=== PATIENT | female | born 1995 | race Caucasian/White ===

== ENCOUNTER 2024-03-22 08:57 | Outpatient (AMB) | payer BC, SELFPAY ==
--- NOTE | 2024-03-22 09:14 | A.OFFPC_ITS ---
Vital Signs 03/22/24 09:22 Height 5 ft 2.48 in Weight 148 lb BMI 26.7 BP 110/58 L Blood Pressure Location Lt brachial Position Sitting Respiration 12 Pulse 91 Pulse Source Pulse Oximeter Temp 98.2 F Temp Source Oral Pulse Oximetry (%) 99 Oxygen Delivery Method Room Air Intake Visit Reasons: RECEIVING LEAD-stomach issues Intake Note: New patient visit Allergies No Known Allergies Allergy (Verified 03/22/24 09:15) Tobacco use date assessed: 03/22/24 Dental Screening Dental Screen Date: 03/22/24 Did you have a dental visit in the last 12 months?: Yes Did you have a dental problem in the last 6 months where you did not have access to dental care?: No Was dental information given to patient?: Patient declined (Patient got her own insurance and will look for one) HPI HPI Comments History of Present Illness Details This is a 28 year old female with a pmhx of bipolar disorder presenting [facility]. She [place] [facility] [place]ipolar disorder-She had been working on mental health for the past two years, and she was diagnosed with this February 2024. She has a therapist she sees weekly. Her psychiatrist is Tiffany Estrada (telehealth @ [facility]). Patient is on [employer]. She is recently engaged, planning longer engagement. 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 Patient and I reviewed family history. MGM and MGGM of postmenopausal breast cancer. Patient denies breast pain or lumps. Father had melanoma and paternal uncle of prostate cancer. Patient wonders if she should see a GI doctor. During the past 2 years she has more frequent BMs, 4-5 per day. She says they are well formed. She is somewhat bothered by fecal urgency after eating, but this is not a consistent symptom. Happens more in the morning and if she eats dinner out somewhere or has fried foods. Patient denies blood in stools. Just feels like food goes through her quickly. Reports having labs done at [facility] in [place] for her psychiatrist a couple weeks ago. She noticed a spot near her hairline 3-4 months ago. It looks irregular. Her father had melanoma. She does not have a bread distributor. ROS: Constitutional: No unexplained weight loss, fever, chills or night sweats. Gastrointestinal: No anorexia, nausea, vomiting or diarrhea. No abdominal pain or blood in stool. Psychiatric: No SI/HI. Physical exam: Constitutional: Alert, in no distress. Neck: Supple, Full range of motion. No lymphadenopathy. No palpable thyroid masses. Respiratory: Clear to auscultation. Cardiovascular: S1 S2 regular. No murmurs. Gastrointestinal: Abdomen soft, non-tender, non-distended. Normal bowel sounds. No palpable masses. Skin: Fair, heavily freckled skin. 8mm lesion on right forehead by the hairline, asymmetric, ruff around edges and light color in center with pearly slight raised center Extremities: Warm and well perfused. No clubbing, cyanosis or edema. Psychiatric: Normal mood and affect [facility] Medical History (Updated 03/22/24 @ 10:25 by JOSE Randall) Family history of cancer Neoplasm of skin Sinus infection Fecal urgency Frequent bowel movements Bipolar disorder Family History (Updated 03/22/24 @ 10:19 by JOSE Randall) Father Alcoholism Melanoma Maternal Grandmother Breast cancer Family/Other Breast cancer Paternal Uncle Prostate cancer Brother Anxiety and depression Sister Anxiety and depression Mother Hypothyroid Other Substance use Social History (Updated 03/22/24 @ 09:20 by Florence Ling CMA) Housing: House Patient Tobacco Use Status: Never used Tobacco e-Cigarette/Vaping Use: Never Used Second Hand Smoke Exposure: No Substance Use Type: Marijuana service: No Current occupational status: employed 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 1. Little interest or pleasure in doing things: not at all 2. Feeling down, depressed, or hopeless: not at all 3. Trouble falling or staying asleep, or sleeping too much: several days 4. Feeling tired or having little energy: several days 5. Poor appetite or overeating: several days 6. Feeling bad about yourself - or that you are a failure or have let yourself or your family down: not at all 7. Trouble concentrating on things, such as reading the newspaper or watching television: several days 8. Moving or speaking so slowly that other people could have noticed. Or the opposite - being so fidgety or restless that you have been moving around a lot more than usual: not at all 9. Thoughts that you would be better off or of hurting yourself in some way: not at all Total score: 4 Depression Screening Interpretation: Positive Depression Screening Follow-up: Existing condition and In treatment Depression Screening Done: Yes 69092 - PHQ-9 Billing: Yes Source: Developed by Drs. Naif Islas, Yanira Patrick, Maxwell Bhandari and colleagues, with an educational maranda from [employer]. Thrive Questionnaire Date Thrive assessed: 03/22/24 I am a: Patient What is your living situation today?: I have a steady place to live Within the past 12 months, did the food you bought not last and you didn't have the money to get more?: Never true Within the past 12 months, did you worry whether your food would run out before you got money to buy more?: Never true Do you have trouble paying for medicines?: No Do you have trouble getting transportation to medical appointments?: No Do you have trouble paying your heating and electricity bill?: No Do you have trouble taking care of your child, family member or friend?: No Do you have trouble with day-to-day activities such as bathing, preparing meals, shopping, managing finances, etc.?: No Are you currently unemployed and looking for a job?: No Are you interested in more education?: No Please select the resources that you would like help with: None Currently or been in a relationship where the following occur: No concerns reported THRIVE Score: 0 AUDIT C Alcohol Use Questionnaire (AUDIT-C) 1. How often do you have a drink containing alcohol?: 2-4 times a month 2. How many drinks containing alcohol do you have on a typical day when you are drinking?: 1 or 2 3. How often do you have six or more drinks on one occasion?: Never Total Score: 2 JARRET-7 AMB Questionnaire JARRET-7 Date JARRET - 7 assessed: 03/22/24 Feeling nervous, anxious, or on edge: 0 = Not at all Not being able to stop or control worryin = Several days Worrying too much about different things: 1 = Several days Trouble relaxin = Several days Being so restless that it is hard to sit still: 1 = Several days Becoming easily annoyed or irritable: 1 = Several days Feeling afraid as if something awful might happen: 1 = Several days Total JARRET-7 score (0-4 normal; 5-9 mild; 10-14 moderate; 15-21 severe): 6 Source: Developed by Drs. Naif Islas, Yanira Patrick, Maxwell Bhandari and colleagues, with an educational maranda from [employer]. JARRET-7 Assessment Billing JARRET-7 Assessment Tool: JARRET-7 Assessment 33628 Physical exam (Primary Care) Vital Signs: Last Vital Signs Temp 98.2 F 03/22/24 09:22 Pulse 91 03/22/24 09:22 Resp 12 03/22/24 09:22 BP 110/58 L 03/22/24 09:22 Pulse Ox 99 03/22/24 09:22 Oxygen Delivery Method Room Air 03/22/24 09:22 BMI result Body Mass Index 26.7 Tobacco/Smoking Status: Tobacco use Status Tobacco use date assessed 03/22/24 03/22/24 09:26 Patient Tobacco Use Status Never used Tobacco 03/22/24 09:26 e-Cigarette/Vaping Use Never Used 03/22/24 09:26 PHQ-9: PHQ-9 Score PHQ-9: Total score 4 03/22/24 10:07 Depression Screening Interpretation: Positive Depression Screening Follow-up: Existing condition and In treatment Thrive Assessment: Date of Thrive Assessment Date Thrive assessed 03/22/24 03/22/24 10:07 Currently or been in a relationship where the following occur: No concerns reported Assessment and Plan Assessment & Plan (1) Bipolar disorder: Code(s): F31.9 - Bipolar disorder, unspecified Qualifiers: Active/Remission status: currently active Current bipolar episode type: mixed Current episode severity: unspecified Qualified Code(s): F31.60 - Bipolar disorder, current episode mixed, unspecified Plan: Continue management plan per psychiatrist and therapist. (2) Frequent bowel movements: Code(s): R19.4 - Change in bowel habit Plan: +fecal urgency. No red flag symptoms otherwise. Possibly IBS, but she reports stools are formed. Will refer to GI for consideration of scope. Advised pt to keep food journal re:fecal urgency. Requests labs done at [facility]. (3) Fecal urgency: Code(s): R15.2 - Fecal urgency (4) Neoplasm of skin: Code(s): D49.2 - Neoplasm of unspecified behavior of bone, soft tissue, and skin Plan: Refer urgently to [facility]. Pt advised to contact this office if she does not hear about this in the next 2 weeks. (5) Family history of cancer: Code(s): Z80.9 - Family history of malignant neoplasm, unspecified Plan: Referred to genetic counselor because she is interested in testing for genetic mutations. Patient also advised to stay UTD on routine HM. 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: Referrals Dermatology Referral D49.2 - Neoplasm of unspecified behavior of bone, soft tissue, and skin, Z80.8 - Family history of malignant neoplasm of other organs or systems Gastroenterology Referral R15.2 - Fecal urgency, R19.4 - Change in bowel habit Genetics Referral Z80.9 - Family history of malignant neoplasm, unspecified Coding Level of Care Code New Pt Level 4 (93556) Complex EM visit Add On G2211 Diagnoses Bipolar affective disorder, current episode mixed, current episode severity unspecified F31.60 Active/Remission status: currently active Current bipolar episode type: mixed Current episode severity: unspecified Frequent bowel movements R19.4 Fecal urgency R15.2 Neoplasm of skin D49.2 Family history of cancer Z80.9 Additional Codes JARRET-7 Assessment Billing - JARRET-7 Assessment Tool: JARRET-7 Assessment 36897 ([id number])
[2024-03-22 09:22] VITALS: BP 110/58; PULSE 91; RESP 12; TEMP 36.8; O2SAT 99; BMI 26.7
== END 2024-03-22 10:05 | disposition home or self-care (01) ==
PROVIDERS: PCP Physician Assistant Medical; Visit Provider Physician Assistant Medical
DX: R19.4 Change in bowel habit (principal); F31.60 Bipolar disorder, current episode mixed, unspecified; R15.2 Fecal urgency; D49.2 Neoplasm of unspecified behavior of bone, soft tissue, and skin; Z80.9 Family history of malignant neoplasm, unspecified
CPT/HCPCS: 99204

== ENCOUNTER 2024-06-06 15:20 | Outpatient (AMB) | payer BC, SELFPAY ==
--- NOTE | 2024-06-06 14:43 | MHC.PC.OV ---
Intake Visit Reasons: sinus infection Intake Note: Congestion in face and nose, dry throat, coughing, fatigue. Allergies No Known Allergies Allergy (Verified 06/06/24 15:18) Tobacco use date assessed: 03/22/24 Dental Screening Dental Screen Date: 03/22/24 HPI HPI Comments History of Present Illness Details This is a 28 year old female presenting for a sick visit. She gets sinus infections once or twice per year. She developed symptoms a week ago. She has yellow nasal discharge, pain and pressure in her cheeks and around her eyes. It is tender if she presses on her cheeks. She had a low-grade fever on Monday. She missed work that day. She endorses postnasal drip triggering a scratchy throat and cough. DayQuil is not helping. ROS: Constitutional: No fevers since Monday, no chills Eyes: No vision changes, blurry vision, double vision, eye pain, eye redness, eye discharge. ENT: No hearing loss, ear pain, see HPI Neurologic: No dizziness PFSH Medical History (Updated 03/22/24 @ 10:25 by JOSE Randall) Family history of cancer Neoplasm of skin Sinus infection Fecal urgency Frequent bowel movements Bipolar disorder Family History (Updated 03/22/24 @ 10:19 by JOSE Randall) Father Alcoholism Melanoma Maternal Grandmother Breast cancer Family/Other Breast cancer Paternal Uncle Prostate cancer Brother Anxiety and depression Sister Anxiety and depression Mother Hypothyroid Other Substance use Social History (Updated 03/22/24 @ 09:20 by Florence Ling CMA) Housing: House Patient Tobacco Use Status: Never used Tobacco e-Cigarette/Vaping Use: Never Used Second Hand Smoke Exposure: No Substance Use Type: Marijuana service: No Current occupational status: employed 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 Naif Islas, Yanira Patrick, Maxwell Bhandari and colleagues, with an educational maranda from [employer]. Physical exam (Primary Care) Tobacco/Smoking Status: Tobacco use Status Tobacco use date assessed 03/22/24 06/06/24 14:44 Patient Tobacco Use Status Never used Tobacco 06/06/24 14:44 e-Cigarette/Vaping Use Never Used 06/06/24 14:44 Thrive Assessment: Date of Thrive Assessment Date Thrive assessed 03/22/24 06/06/24 14:44 Telehealth Telehealth Telehealth Platform: Telephone Location of provider rendering services: practice address Location of patient: address on file Patient Identification confirmed using: Name, : No Telehealth method: voice only Patient verbally consented to treatment: Yes Patient verbally consented to billing insurance company: Yes Patient informed of any privacy concerns related to visit: Yes Minutes spent on Phone/Video with Pt.: 5 Coding Level of Care Code Tele Est Pt Level 3 (37565) Diagnoses Acute non-recurrent sinusitis of other sinus J01.80 Sinusitis location: other Recurrence: non-recurrent Assessment & Plan Assessment & Plan (1) Acute sinus infection: Code(s): J01.90 - Acute sinusitis, unspecified Qualifiers: Sinusitis location: other Recurrence: non-recurrent Qualified Code(s): J01.80 - Other acute sinusitis Plan Patient will be treated with Augmentin 1 pill twice daily for 10 days. Complete entire course of antibiotics even if symptoms improve. Recommended saline nasal spray, cool mist humidifier, rest and fluids. She is prone to yeast infections so I sent an advanced prescription of Diflucan. She will call if symptoms do not resolve. Medications: New amoxicillin-pot clavulanate 875-125 mg 1 tab PO BID 10 days 20 tabs 0RF fluconazole may repeat second dose 72 hrs after first dose if symptoms persist 150 mg PO Q3D 2 tabs 0RF
== END 2024-06-06 16:19 | disposition home or self-care (01) ==
LOC: HO.HMCFM 15:20
PROVIDERS: PCP Family Medicine; Visit Provider Physician Assistant Medical
DX: J01.80 Other acute sinusitis (principal)

== ENCOUNTER → 2024-06-06 15:20 | Outpatient (BNVA) | payer BC, SELFPAY | PROVIDERS: PCP Family Medicine; Visit Provider Physician Assistant Medical ==

== ENCOUNTER 2024-10-24 08:33 | Outpatient (AMB) | payer BC, SELFPAY ==
--- NOTE | 2024-10-24 08:41 | A.OFFPC_ITS ---
Vital Signs 10/24/24 08:44 Height 5 ft 2.48 in Weight 179 lb 6 oz BMI 32.3 BP 118/58 L Blood Pressure Location Rt brachial Position Sitting Respiration 12 Pulse 98 Pulse Source Pulse Oximeter Pulse Oximetry (%) 99 Oxygen Delivery Method Room Air Intake Visit Reasons: annual physical exam Intake Note: Physical Allergies No Known Allergies Allergy (Verified 10/24/24 08:42) Tobacco use date assessed: 10/24/24 Dental Screening Dental Screen Date: 03/22/24 HPI HPI Comments History of Present Illness Details This is a 29 year old female with a pmhx of bipolar disorder presenting for a physical exam. Bipolar disorder-diagnosed with this February 2024. She has a therapist she sees weekly. Her psychiatrist is Tiffany Estrada (telehealth @ [facility]). Patient is on Abillify. She is recently engage. Her wedding is 06/13/2026. 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 Patient and I reviewed family history again. MGM and MGGM of postmenopausal breast cancer. Patient denies breast pain or lumps. Father had melanoma and paternal uncle of prostate cancer. She was referred to genetic counseling. She was contacted for the appointment, and she has the packet from [facility], but she is waiting to pursue that right now. She does still plan on following up with [facility] genetics. Patient I previously discussed frequent BMs that are in the morning. Patient says they are well formed. No bleeding or mucus in stools. She was referred to Gastroenterology, but she is going to reschedule the appointment. There has been no change in symptoms, but she does recognize a correlation between these events and binge eating. She has been speaking to her therapist about it, and she requests to see a dietitian. She is very active. She goes to the gym 5 days per week. Denies family history of colon cancer. Her father has had colon polyps since he started colonoscopy screenings in his 50s. She sees Gynecology annually. She is going to discuss testing for PCOS with them at her annual physical next week. She has an appointment with [facility] in December for a skin exam. She received the influenza vaccine this season. Her last Tdap on file is in 2008, but she thinks she may have had this done at [facility] in the last few years, and we did not receive those records. She will sign a release for her records and contact the office in a month to see if we have received them. I reviewed her normal lab results that are scanned into the chart from summer 2023. ROS: Constitutional: No unexplained weight loss, fever, chills, fatigue or night sweats. Eyes: No vision changes, blurry vision, double vision, eye pain, eye redness, eye discharge. ENT: No hearing loss, sneezing, congestion, runny nose or sore throat. Respiratory: No shortness of breath, cough or sputum production. Cardiovascular: No chest pain, chest pressure or chest discomfort. No palpitations or pedal edema. Gastrointestinal: No anorexia, nausea, vomiting or diarrhea. No abdominal pain or blood in stool. Genitourinary: No dysuria, hematuria, urinary frequency. Neurologic: No headache, dizziness, syncope, unilateral weakness, ataxia, numbness or tingling in the extremities. Musculoskeletal: No muscle pain, back pain, joint pain or swelling. Hematologic/Lymphatics: No bleeding or bruising. No painful lymph nodes. Skin: No rash Endocrine: No cold or heat intolerance. No polyuria or polydipsia. Psychiatric: No SI/HI. Physical exam: Constitutional: Alert, in no distress. Head: Normocephalic. Eyes: Pupils are equal, round and reactive to light. Extraocular muscles intact. Ear, Nose and Throat: Canals clear. TMs normal. Normal nasal mucosa. No nasal discharge. No oral lesions. Neck: Supple, Full range of motion. No lymphadenopathy. No palpable thyroid masses. Respiratory: Clear to auscultation. Cardiovascular: S1 S2 regular. No murmurs. Gastrointestinal: Abdomen soft, non-tender, non-distended. Normal bowel sounds. No palpable masses. Neurologic: No focal neurological deficits. Symmetric patellar reflexes. Moves all extremities spontaneously. Sensation intact bilaterally. Skin: Fair, heavily freckled skin Musculoskeletal: No gross deformities. Normal range of motion. Extremities: Warm and well perfused. No clubbing, cyanosis or edema. 3+ peripheral pulses bilaterally. Psychiatric: Normal mood and affect [facility] Medical History (Updated 10/24/24 @ 08:59 by JOSE Randall) Binge eating Family history of cancer Neoplasm of skin Sinus infection Fecal urgency Frequent bowel movements Bipolar disorder Family History Father Alcoholism Melanoma Maternal Grandmother Breast cancer Family/Other Breast cancer Paternal Uncle Prostate cancer Brother Anxiety and depression Sister Anxiety and depression Mother Hypothyroid Other Substance use Social History (Updated 10/24/24 @ 08:46 by Florence Ling CMA) Housing: House Alcohol intake: current Patient Tobacco Use Status: Never used Tobacco e-Cigarette/Vaping Use: Never Used Second Hand Smoke Exposure: No Substance Use Type: Marijuana service: No Current occupational status: employed 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 1. Little interest or pleasure in doing things: not at all 2. Feeling down, depressed, or hopeless: not at all 3. Trouble falling or staying asleep, or sleeping too much: not at all 4. Feeling tired or having little energy: not at all 5. Poor appetite or overeating: more than half the days 6. Feeling bad about yourself - or that you are a failure or have let yourself or your family down: not at all 7. Trouble concentrating on things, such as reading the newspaper or watching television: not at all 8. Moving or speaking so slowly that other people could have noticed. Or the opposite - being so fidgety or restless that you have been moving around a lot more than usual: not at all 9. Thoughts that you would be better off or of hurting yourself in some way: not at all Total score: 2 Depression Screening Interpretation: Negative Depression Screening Done: Yes 63482 - PHQ-9 Billing: Yes Source: Developed by Drs. Naif Islas, Yanira Patrick, Maxwell Bhandari and colleagues, with an educational maranda from [employer]. Thrive Questionnaire Date Thrive assessed: 10/24/24 I am a: Patient What is your living situation today?: I have a steady place to live Within the past 12 months, did the food you bought not last and you didn't have the money to get more?: Never true Within the past 12 months, did you worry whether your food would run out before you got money to buy more?: Never true Do you have trouble paying for medicines?: No Do you have trouble getting transportation to medical appointments?: No Do you have trouble paying your heating and electricity bill?: No Do you have trouble taking care of your child, family member or friend?: No Do you have trouble with day-to-day activities such as bathing, preparing meals, shopping, managing finances, etc.?: No Are you currently unemployed and looking for a job?: No Are you interested in more education?: Yes Please select the resources that you would like help with: None Currently or been in a relationship where the following occur: No concerns r eported THRIVE Score: 0 AUDIT C Alcohol Use Questionnaire (AUDIT-C) 1. How often do you have a drink containing alcohol?: Monthly or less 2. How many drinks containing alcohol do you have on a typical day when you are drinking?: 1 or 2 3. How often do you have six or more drinks on one occasion?: Never Total Score: 1 JARRET-7 AMB Questionnaire JARRET-7 Date JARRET - 7 assessed: 10/24/24 Feeling nervous, anxious, or on edge: 0 = Not at all Not being able to stop or control worryin = Not at all Worrying too much about different things: 0 = Not at all Trouble relaxin = Not at all Being so restless that it is hard to sit still: 0 = Not at all Becoming easily annoyed or irritable: 0 = Not at all Feeling afraid as if something awful might happen: 0 = Not at all Total JARRET-7 score (0-4 normal; 5-9 mild; 10-14 moderate; 15-21 severe): 0 Source: Developed by Drs. Naif Islas, Yanira Patrick, Maxwell Bhandari and colleagues, with an educational maranda from [employer]. JARRET-7 Assessment Billing JARRET-7 Assessment Tool: JARRET-7 Assessment 47886 Physical exam (Primary Care) Vital Signs: Last Vital Signs Pulse 98 10/24/24 08:44 Resp 12 10/24/24 08:44 BP 118/58 L 10/24/24 08:44 Pulse Ox 99 10/24/24 08:44 Oxygen Delivery Method Room Air 10/24/24 08:44 BMI result Body Mass Index 32.3 Tobacco/Smoking Status: Tobacco use Status Tobacco use date assessed 10/24/24 10/24/24 08:45 Patient Tobacco Use Status Never used Tobacco 10/24/24 08:46 e-Cigarette/Vaping Use Never Used 10/24/24 08:46 PHQ-9: PHQ-9 Score PHQ-9: Total score 2 10/24/24 08:47 Depression Screening Interpretation: Negative Thrive Assessment: Date of Thrive Assessment Date Thrive assessed 10/24/24 10/24/24 08:47 Currently or been in a relationship where the following occur: No concerns reported Coding Level of Care Code Est Pt Prev Care 18-39y(15278) Diagnoses Routine physical examination Z00.00 Binge eating R63.2 Additional Codes JARRET-7 Assessment Billing - JARRET-7 Assessment Tool: JARRET-7 Assessment 92814 ([id number]) PHQ-9 - 94035 - PHQ-9 Billing: Yes ([id number]) Assessment & Plan Assessment & Plan (1) Routine physical examination: Code(s): Z00.00 - Encounter for general adult medical examination without abnormal findings (2) Binge eating: Code(s): R63.2 - Polyphagia Category: Medical Plan Patient is seen today for a routine physical. As part of this visit we reviewed the following issues, which are considered and essential part of preventative health in this age group: - Breast Cancer screening - Annual Forms Examiner exam - Blood pressure screening - Cholesterol screening - normal cholesterol screening 02/2024 - Osteoporosis prevention including calcium/vitamin D intake, weight bearing exercise & smoking cessation - Nutritional and exercise counseling - Counseling of injury prevention including fire prevention, smoke alarms and seat belt usage - Prevention of and/or testing for infectious diseases-patient declined - Education about skin cancer - Recommendations about immunizations - see HPI regarding Tdap vaccination - Recommendation of an eye exam - Screening for substance abuse - Genetic cancer risk screening-patient plans to proceed with genetic counseling/testing at [facility] Referred to dietitian re: Binge eating. She is followed by a therapist and psychiatrist. Follow up with Gastroenterology and Dermatology. Follow up in 1 year for annual physical exam. Orders: Referrals Architectural Technologist Nutrition Referral R63.2 - Polyphagia
[2024-10-24 08:44] VITALS: BP 118/58; PULSE 98; RESP 12; O2SAT 99; BMI 32.3
--- OUTSIDE RECORDS SUMMARY | 2024-10-24 08:56 | XMS_ITS | Clinical Summary ---
Author Organization [facility] Address [address] [place] [address] Phone Care Team Providers Care Reliability Engineer Name Role Phone Stacey Marroquin MD Primary Care Provider Unavailabl e Immunizations Immunization Administration Dates Next Due DTaP 01/09/2003, 9,03/20/1998, 998,1997 HPV, Quadrivalent 02/07/2014,10/04/2013,07/11/20 13 Hep B, ped/adol 08/10/1998,1997,1997 Hib (PRP-T) 12/14/1998, 8,01/15/1998, 998 IPV 01/09/2003, 9,01/15/1998, 998 MMR 01/07/2002,09/14/1998 Meningococcal Conj (Menactra) MCV4P 08/19/2014,0 01/09/2009 Tdap 01/09/2009 Unknown Vaccine 04/18/2016,04/05/2016 Varicella 04/28/2010,01/07/2002 Family History Relation Name Status Comments Father Alive healthy age: 57 Father's Brother Alive healthy Father's Sister Alive healthy Maternal Grandfather Maternal Grandmother lung ca ncer diagnosed with MALIGNANT NEOPLASM NOS Mother Alive healthy age: 53 Other Alive Siblings: healt hy Paternal Grandfather colon C A diagnosed with MALIGNANT NEOPLASM NOS Paternal Grandmother ovarian CA diagnosed with MALIGNANT NEOPLASM NOS Social History Tobacco Use Types Packs/Day Years Used Date Smoking Tobacco: Never Assessed Comments Unknown Sex and Gender Information Value Date Recorded Sex Assigned at Not on file Legal Sex Female 6:10 PM EDT Gender Identity Not on file Sexual Orientation Not on file Last Filed Vital Signs Vital Sign Reading Time Taken Comments Blood Pressure 120/72 04/05/2016 12:00 AM EDT Pulse - - Temperature 36.4 ??C (97.6 ??F) 04/05/2016 12:00 AM E DT Respiratory Rate - - Oxygen Saturation - - Inhaled Oxygen Concentration - - Weight 67.4 kg (148 lb 9.6 oz) 04/05/2016 12:00 AM EDT Height 162.6 cm (5' 4 ) 04/05/2016 12:00 AM EDT Body Mass Index 25.51 04/05/2016 12:00 AM EDT Plan of Treatment Health Maintenance Due Date Last Done Comments Consider Men B Vaccine (1 of 2 - Bexsero 2-dose series) 2013 DTaP,Tdap,and Td Vaccines (7 - Td or Tdap) 01/09/2019 01/09/2009, 01/09/2003, 12/14/1998, Additional history exists Influenza Vaccines (#1) 2024 COVID-19 Vaccine ( season) 2024 Hepatitis B Vaccines Completed 08/10/1998, 1997, 1997 HIB Vaccines Completed 12/14/1998, 03/04, 01/15/1998, Additional history exists MMR Vaccines Completed 01/07/2002, 09/14/1998 IPV Vaccines Completed 01/09/2003, 09/04, 01/15/1998, Additional history exists Varicella Vaccines Completed 04/28/2010, 01/07/2002 HPV Vaccines Completed 02/07/2014, 09/06, 07/11/2013 Meningococcal Vaccine Completed 08/19/2014, 009 Hepatitis A Vaccines Aged Out No long er eligible based on patient's age to complete this topic Men B Vaccine Aged Out No longer elig ible based on patient's age to complete this topic Pneumococcal Vaccine Aged Out No long er eligible based on patient's age to complete this topic Procedures * Due to [place] state law, this organization might not be sharing sensitive test results. Procedure Name Priority Date/Time Associated Diagnosis Comments CHLAMYDIA AND GONORRHEA, AMPLIFIED Routine 08/27/2015 12:00 AM EST from Last 3 Months or Most Recently Relevant to Health Maintenance Results * Due to [place] state law, this organization might not be sharing sensitive test results. * Chlamydia and Gonorrhoea, Amplified (08/27/2015 12:00 AM EST) URINE GC AMP PROBE NEGATIVE C ONVERTED LABS Comment: No Neisseria Gonorrhoeae RNA detected in this patient's sample (REFERENCE RANGE/NORMAL VALUE: NOT DETECTED) NOTE: This test uses emergency room clerk-mediated amplification method to detect rRNA from C.Trachomatis and N.Gonorrhoeae. A negative result does not preclude infection. In the case of a negative urine result, testing of an endocervical(female) or urethral(male) specimen is recommended if there is high clinical suspicion of infection. The performance characteristics of this test have not been evaluated in children. The Aptima Combo2 assay is not intended for the evaluation of suspected sexual abuse or for other medico-legal indications. The ordering provider should assess if the patient had consensual sex without risk of sexual abuse. Consult the [facility] [place] if needed. Contact phone number . Therapeutic failure or success cannot be determined with the Aptima Combo2 assay since nucleic acid may persist following appropriate antimicrobial therapy. The Centers for Disease Control and Prevention (CDC) recommends confirmatory retesting using culture or a different nucleic acid amplification test when positive results occur, if indicated. URINE CHLAMYDIA AMP PROBE NEGATIVE CONVERTED LABS Comment: No Chlamydia Trachomatis RNA detected in this patient's sample (REFERENCE RANGE/NORMAL VALUE: NOT DETECTED) 08/27/2015 Narrative CONVERTED LABS - 08/27/2015 12:00 AM EST Screening Negative Lore Cronin ??08/26/2015 01:41:05 PM > Cheng Christopher ??08/29/2015 11:09:54 AM > Luz Curtis 08/30/2015 11:38:30 AM > Luz Curtis PRESSING DEPARTMENT SUPERVISOR LAB MICROBIOLOGY - GENERAL ORDER HARPREET Final Result CONVERTED LABS from Last 3 Months or Most Recently Relevant to Health Maintenance Care Teams Reliability Engineer Relationship Specialty Start Date End Date Stacey Marroquin MD PCP - General Pediatrics 01/06/20
--- OUTSIDE RECORDS SUMMARY | 2024-10-24 08:56 | XMS_ITS | Encounter Summary ---
Author Organization [facility] Address [address] [place] [address] Phone Care Team Providers Care Coffee Grinder Name Role Phone Stacey Marroquin MD Primary Care Provider Unavailabl e Encounter Details Date Type Department Care Team (Late st Contact Info) Description 01/21/2018 Conversion [facility]counter [facility] [address] [address] Social History Tobacco Use Types Packs/Day Years Used Date Smoking Tobacco: Never Assessed Comments Unknown Sex and Gender Information Value Date Recorded Sex Assigned at Not on file Legal Sex Female 6:10 PM EDT Gender Identity Not on file Sexual Orientation Not on file documented as of this encounter Plan of Treatment Not on file documented as of this encounter Visit Diagnoses Not on filedocumented in this encounter Care Teams Coffee Grinder Relationship Specialty Start Date End Date Stacey Marroquin MD PCP - General Pediatrics 01/06/20 documented as of this encounter
--- OUTSIDE RECORDS SUMMARY | 2024-10-24 08:56 | XMS_ITS | Clinical Summary ---
Author Organization [facility] Address [address] [place] [address] Care Team Providers Care Inspector Weights And Measures Name Role Phone Unavailable Primary Care Provider Unavailabl e Allergies No known active allergies Medications Medication Sig Dispensed Refills Start Date End Date Status adapalene (DIFFERIN) 0.1 % gel APPLY SPARINGLY TO FACE AT BEDTIME FOR ACNE. 5 08/27/2017 Active Clindamycin Phos-Benzoyl Perox gel APPLY A PEA SIZE AMOUNT TO FACE IN AM FOR ACNE MAY STAIN CLOTHING 2 08/27/2017 Active TRI-PREVIFEM 0.18/0.215/0.25 MG-35 MCG TABS Take 1 tablet by mouth daily. as directed 84 tablet 1 10/31/2017 Active sertraline (ZOLOFT) 50 MG tabletIndications:A nxiety state TAKE 1/2 TAB DAILY FOR 1 WEEK, THEN 1 TAB DAILY FOR 1 WEEK, THEN 2 TABS DAILY THEREAFTER 90 tablet 1 11/26/2019 Active Active Problems Problem Noted Date Diagnosed Date Acne vulgaris 09/14/2017 JARRET 09/14/2017 Family History Medical History Relation Name Comments Hypothyroidism Mother Breast cancer Paternal Grandmother Relation Name Status Comments Mother Paternal Grandmother Social History Tobacco Use Types Packs/Day Years Used Date Smoking Tobacco: Never Smokeless Tobacco: Never Alcohol Use Standard Drinks/Week Comments No 0 (1 standard drink = 0.6 oz pur e alcohol) Sex and Gender Information Value Date Recorded Sex Assigned at Not on file Gender Identity Not on file Sexual Orientation Not on file Last Filed Vital Signs Vital Sign Reading Time Taken Comments Blood Pressure 114/70 08/07/2019 1:18 PM EST Pulse 79 08/07/2019 1:18 PM EST Temperature 37 ??C (98.6 ??F) 08/07/2019 1:18 PM EST Respiratory Rate - - Oxygen Saturation 98% 08/07/2019 1:18 PM EST Inhaled Oxygen Concentration - - Weight 79.8 kg (176 lb) 08/07/2019 1:18 PM EST Height 157.5 cm (5' 2 ) 08/07/2019 1:18 PM EST Body Mass Index 32.19 08/07/2019 1:18 PM EST Plan of Treatment Health Maintenance Due Date Last Done Comments Hepatitis B Vaccines (1 of 3 - 3-dose series) 1997 Hepatitis C Screening 1997 COVID-19 Vaccine (#1) 03/13/1998 Depression Screening 2009 BMI Counseling 2015 Cervical Cancer Screening (Pap Smear) 2018 DTap / Tdap / Td (7 - Td or Tdap) 01/09/2019 01/09/2009, 01/09/2003, 12/14/1998, Additional history exists Preventative Health Evaluation 08/07/2020 08/07/2019 Influenza Vaccine (#1) 2024 Pneumococcal Vaccine Aged Out No long er eligible based on patient's age to complete this topic RSV Ped < 20 months Aged Out No longe r eligible based on patient's age to [place] [phone]
== END 2024-10-24 09:07 | disposition home or self-care (01) ==
PROVIDERS: PCP Physician Assistant Medical; Visit Provider Physician Assistant Medical
DX: Z00.00 Encounter for general adult medical examination without abnormal findings (principal); R63.2 Polyphagia

== ENCOUNTER → 2024-10-24 08:33 | Outpatient (BNVA) | payer BC, SELFPAY | PROVIDERS: PCP Physician Assistant Medical; Visit Provider Physician Assistant Medical | DX: Z00.00 Encounter for general adult medical examination without abnormal findings (principal); R63.2 Polyphagia | CPT/HCPCS: 96127 ==

== ENCOUNTER 2024-11-12 10:55 | Outpatient (AMB) | payer BC, SELFPAY ==
[2024-11-12 11:05] VITALS: BMI 32.6
--- NOTE | 2024-11-12 11:05 | A.OFFVIS_ITS ---
VS Expanded 11/12/24 11:05 11/12/24 11:22 Height 5 ft 2.48 in 5 ft 2.5 in Weight 180 lb 15.992 oz 186 lb BMI 32.6 33.5 Intake Visit Reasons: Polyphagia Allergies No Known Allergies Allergy (Verified 10/24/24 08:42) Nutrition Presentation Details: Pt presents for MNT for polyphagia Typical meal : B: oatmeal /water/peanut butter L: ground turkey/rice , estonian yogurt, water cucumber dinner: protein/starches /veggies , seltzer water snacks: chips fruits: 0-1/d fish : 1-2 x/wk dairy: almond /yogur 1-2 water : 24 oz x 5 /day eoth: -- smoking--- denies vomiting, diarrhea, constipation physical activity - --- MVI - no BS Monitoring Most Recent Diabetes Results: No Data to Display NUZ-Nbfiflj-Dg.Jeor Equation Height: 5 ft 2.5 in Weight: 186 lb Resting Metabolic Rate: 1541.19 Calculated Activity Level: Moderate Activity Calories Needed to Maintain Weight: 2388.84 Diagnosis Nutrition problem #1: food nutri know defi As related to (etiology) #1: diagnosis As evidenced by (sign/symptom) #1: knowledge deficit of diet PFSH Medical History (Updated 10/24/24 @ 08:59 by JOSE Randall) Binge eating Family history of cancer Neoplasm of skin Sinus infection Fecal urgency Frequent bowel movements Bipolar disorder Family History Father Alcoholism Melanoma Maternal Grandmother Breast cancer Family/Other Breast cancer Paternal Uncle Prostate cancer Brother Anxiety and depression Sister Anxiety and depression Mother Hypothyroid Other Substance use Social History (Updated 10/24/24 @ 08:46 by Florence Ling CMA) Housing: House Alcohol intake: current Patient Tobacco Use Status: Never used Tobacco e-Cigarette/Vaping Use: Never Used Second Hand Smoke Exposure: No Substance Use Type: Marijuana service: No Current occupational status: employed 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 Current occupational exposures/hazards: No Cognitive needs: No Hearing needs: No Vision needs: No Assessment & Plan Assessment & Plan (1) Binge eating: Code(s): R63.2 - Polyphagia Category: Medical Plan: Wt: 85 Kg ( 11/26 ) Est kcal needs as per MSJ: 2400 (40% carb, 30% protein/fat) Est fluid needs as per 25-30 ml/d: 2500 Est prot per day as per 1 g/kg bw: 85 Pt reports having goal wt of 155 lbs Recommend fiber intake : 8-10 g per day and gradually increase to 25-28 g per day for women and 35-38 g for men or as tolerated Recommend sodium intake per day : less than 1500 mg less than 2000 mg Educated patient on: ( R = reviewed V = verbalizes understanding N/R = needs review N/A = not applicable * Food sources of carbohydrate, adequate serving sizes and its role in various health conditions: R V N/R * Differences between complex carbohydrates a simple carbohydrates, role of fiber in diet: R * Lean protein sources of foods: R V NR * Differences between types of fats and role in diet (mono on saturated fat fatty acids, saturated fatty acids, trans fats): R V N/R * Food sources of sodium in salt and healthy modifications for heart health in kidney health: R V R/V * Vitamins and minerals: R V N/R * Healthy plate method concept: R * Physical activity: Benefits a precaution: R V N/R Patient Instructions: Practice mindful eating, chew foods well prior to swallowing Work on having a meal time routine : 3 meals/day and 2-3 snacks a day follow healthy plate (protein/non starchy veg and choose a food group) snack choose a protein and combine with a portion of a food group of choice Coding Level of Care Code Nutr Indiv Intake (73043) Diagnoses Binge eating R63.2 Time Spent (min) 30
--- OUTSIDE RECORDS SUMMARY | 2024-11-12 13:24 | XMS_ITS | Clinical Summary ---
Author Organization [facility] Address [address] [id number] Care Team Providers Care Joint Runner Name Role Phone Unavailable Primary Care Provider [...] to complete [place] [id number]
--- OUTSIDE RECORDS SUMMARY | 2024-11-12 13:24 | XMS_ITS | Encounter Summary ---
Author Organization [facility] Address [address] [place] [phone] Phone Care Team Providers Care Lead Programmer Analyst Name Role Phone Stacey Marroquin MD Primary Care Provider Unavailabl e Encounter Details Date Type Department Care Team (Late st Contact Info) Description 01/21/2018 Conversion Encounter [facility] [address] [id number] Social History Tobacco Use Types Packs/Day Years [...] on filedocumented in this encounter Care Teams Lead Programmer Analyst Relationship Specialty Start Date End Date Stacey Marroquin MD PCP - General Pediatrics 01/06/20 documented as of this encounter
--- OUTSIDE RECORDS SUMMARY | 2024-11-12 13:25 | XMS_ITS | Clinical Summary ---
Author Organization [facility] Address [address] [place] [phone] Phone Care Team Providers Care Diesel Locomotive Firer/Fireman Name Role Phone Stacey Marroquin MD Primary [...] complete this topic Procedures * Due to [place] state law, this organization might not be sharing sensitive test results. Procedure Name Priority Date/Time Associated Diagnosis Comments CHLAMYDIA AND GONORRHEA, AMPLIFIED Routine 08/27/2015 12:00 AM EST from Last 3 Months or Most Recently Relevant to Health Maintenance Results * Due to [place] state law, this organization might not be sharing sensitive test results. * Chlamydia and Gonorrhoea, Amplified (08/27/2015 12:00 AM EST) URINE GC AMP PROBE NEGATIVE C ONVERTED LABS Comment: No Neisseria Gonorrhoeae RNA detected in this patient's sample (REFERENCE RANGE/NORMAL VALUE: NOT DETECTED) NOTE: This test uses bindery machine feeder offbearer-mediated amplification method to detect rRNA from C.Trachomatis [...] without risk of sexual abuse. Consult the [facility] if needed. Contact phone number . Therapeutic [...] Curtis 08/30/2015 11:38:30 AM > Luz Curtis SEISMIC ENGINEER LAB MICROBIOLOGY - GENERAL ORDER HARPREET Final Result CONVERTED LABS from Last 3 Months or Most Recently Relevant to Health Maintenance Care Teams Diesel Locomotive Firer/Fireman Relationship Specialty Start Date End Date Stacey Marroquin MD PCP - General Pediatrics 01/06/20
[2024-11-20 14:40] VITALS: BMI 33.5
== END 2024-11-12 11:40 | disposition home or self-care (01) ==
LOC: HO.ENCR 10:56
PROVIDERS: PCP Physician Assistant Medical; Visit Provider Dietitian, Registered
DX: R63.2 Polyphagia (principal)

== ENCOUNTER → 2024-11-12 10:55 | Outpatient (BNVA) | payer BC, SELFPAY | PROVIDERS: PCP Physician Assistant Medical; Visit Provider Dietitian, Registered | DX: R63.2 Polyphagia (principal); Z71.3 Dietary counseling and surveillance | CPT/HCPCS: 97802 ==